=== PATIENT | male | born 1945 | race Caucasian/White ===

== ENCOUNTER → 2017-05-04 | Outpatient (CLI) | payer MEDICARE | END | disposition home or self-care (01) | LOC: LABWHC1 16:40 | PROVIDERS: ATTEND Internal Medicine Interventional Cardiology | DX: E03.9 Hypothyroidism, unspecified (principal); I25.10 Atherosclerotic heart disease of native coronary artery without angina pectoris | CPT/HCPCS: 36415; 84439; 84443 ==

== ENCOUNTER 2018-03-10 07:01 | Day surgery (SDC) | payer MEDICARE ==
[2018-03-05 10:18] VITALS: BMI 32.6
[~2018-03-10 07:01] MED LIST: LACTATED RINGERS 1,000 ML IV SCH; LIDOCAINE 1% 20 ML VIAL (10MG/ML) FOR IV START INTRADERMA PRN
[2018-03-10] MEDS ORDERED: LACTATED RINGERS 1,000 ML IV ONE (07:08)
[2018-03-10 07:14] VITALS: TEMP 98.5
[2018-03-10 07:22] LABS: Glucose,Whole Blood 146 mg/dL (75-99)
[2018-03-10] MEDS ORDERED: PROPOFOL 10 MG/ML 20 ML VIAL IV ONE (07:44)
--- NOTE | 2018-03-10 07:57 | P.GSHP ---
History of Present Illness H&P Date: 03/10/18 Chief Complaint: Screening colonoscopy This is a 72-year-old male who presents today for screening colonoscopy. He denies any significant GI complaints. Past Medical History Past Medical History: Diabetes Mellitus, GERD/Reflux, Hyperlipidemia, Hypertension History of Any Multi-Drug Resistant Organisms: None Reported Past Surgical History: Coronary Bypass/CABG, Heart Catheterization Additional Past Surgical History / Comment(s): Colonoscopy Past Anesthesia/Blood Transfusion Reactions: No Reported Reaction Smoking Status: Never smoker - Past Family History Father History Unknown: Yes Family Medical History: Myocardial Infarction ([place]) Mother History Unknown: Yes Family Medical History: Coronary Artery Disease (CAD) Medications and Allergies Home Medications Medication Instructions Recorded Confirmed Type Aspirin 325 mg PO DAILY 10/10/15 03/05/18 History Atorvastatin [Lipitor] 40 mg PO HS 10/10/15 03/10/18 History Insulin NPH/Reg Insulin 70/30 60 units SQ BID-W/MEALS 10/10/15 03/10/18 History [humuLIN 70/30 VIAL] Isosorbide Mononitrate ER [Imdur] 60 mg PO DAILY 10/10/15 03/10/18 History Lisinopril [Zestril] 10 mg PO DAILY 10/10/15 03/10/18 History Metoprolol Tartrate [Lopressor] 50 mg PO DAILY 10/10/15 03/10/18 History Omeprazole 40 tab PO DAILY 10/10/15 03/10/18 History glipiZIDE [Glucotrol] 10 mg PO DAILY 10/10/15 03/10/18 History Allergies Allergy/AdvReac Type Severity Reaction Status Date / Time No Known Allergies Allergy Verified 03/10/18 07:15 Surgical - Exam Vital Signs Temp Pulse 98.5 F 88 03/10/18 07:14 03/10/18 07:14 - General well developed, no distress - Eyes PERRL - ENT normal pinna - Neck no masses - Respiratory normal expansion - Cardiovascular Rhythm: regular - Abdomen Abdomen: soft, non tender Results - Labs Abnormal Lab Results - Last 24 Hours (Table) 03/10/18 Range/Units 07:18 POC Glucose (mg/dL) 146 H (75-99) mg/dL Assessment and Plan Assessment: We will perform screening colonoscopy.
--- NOTE | 2018-03-10 08:08 | P.OP ---
Date of Procedure: 03/10/18 Preoperative Diagnosis: Screening colonoscopy Postoperative Diagnosis: Normal colonoscopy Procedure(s) Performed: Colonoscopy Anesthesia: MAC Surgeon: Porter Choe Pathology: none sent Condition: stable Disposition: PACU Description of Procedure: PROCEDURE: The patient was placed on the endoscopy table in the lateral position. Digital rectal examination was performed which revealed no abnormalities. The prostate was symmetrical without nodules. Flexible colonoscope was then placed in the patient's anus and passed throughout the entire colon. The ileocecal valve was visualized. The cecum, ascending, transverse, descending and sigmoid colon were normal. The rectum was normal as well. There were no masses, polyps or diverticula noted in the entire colon. SUMMARY OF FINDINGS: Normal colonoscopy.
[2018-03-10 08:37] VITALS: BP 167/99; PULSE 80; RESP 20
== END 2018-03-10 09:00 | disposition home or self-care (01) ==
LOC: ORWHC2ENDO 07:01
PROVIDERS: ATTEND Surgery
DX: Z12.11 Encounter for screening for malignant neoplasm of colon (principal); E11.9 Type 2 diabetes mellitus without complications; E78.5 Hyperlipidemia, unspecified; I10 Essential (primary) hypertension; G47.33 Obstructive sleep apnea (adult) (pediatric); I25.10 Atherosclerotic heart disease of native coronary artery without angina pectoris; K21.9 Gastro-esophageal reflux disease without esophagitis; Z95.1 Presence of aortocoronary bypass graft; Z82.49 Family history of ischemic heart disease and other diseases of the circulatory system; Z79.82 Long term (current) use of aspirin; Z79.4 Long term (current) use of insulin; Z79.899 Other long term (current) drug therapy
CPT/HCPCS: J2704; G0121

== ENCOUNTER → 2019-03-19 | Outpatient (CLI) | payer MEDICARE ==
[2019-03-19 10:54] LABS: Anisocytosis Slight; HCT 46.8 % (39.0-53.0); HGB 14.8 gm/dL (13.0-17.5); MCH 25.2 pg (25.0-35.0); MCHC 31.6 g/dL (31.0-37.0); MCV 79.8 fL (80.0-100.0); Mean Platelet Volume 6.4; Microcytosis Slight; Platelet Count 247 k/uL (150-450); RBC 5.86 m/uL (4.30-5.90); WBC 8.4 k/uL (3.8-10.6)
== END | disposition home or self-care (01) ==
LOC: LABPAT 10:04
PROVIDERS: ATTEND Surgery
DX: Z01.812 Encounter for preprocedural laboratory examination (principal)
CPT/HCPCS: 36415; 85027

== ENCOUNTER → 2019-03-19 | Outpatient (CLI) | payer MEDICARE ==
--- NOTE | 2019-03-19 15:15 | MR ---
EXAMINATION TYPE: MR brain wo/w con DATE OF EXAM: 03/19/2019 COMPARISON: NONE HISTORY: Memory loss TECHNIQUE: Multiplanar, multisequence images of the brain and brainstem is performed without and with IV contras t, utilizing 9 mL intravenous Gadavist . FINDINGS: Diffusion weighted images demonstrate no evidence of a recent infarct or other diffusion ab normality. There is no worrisome extra-axial fluid collection. There is diffuse ventricular and sulc al prominence bilaterally with slightly more symmetric atrophy of the bilateral frontal lobes noted. Scattered foci of T2 hyperintensity seen throughout the deep and periventricular white matter, approx imately 20 scattered lesions are seen. Midline structures demonstrate normal morphology. The craniocervical junction appears within normal limits. Post contrast images demonstrate no abnormal enhancement. The dural venous sinuses appear pa tent. Mild mucosal thickening involving left frontal and anterior left ethmoid sinuses are present. T here is nasal septal deviation to the right. Right lens is thinned suggesting possible right cataract surgery. IMPRESSION: There is mild to moderate diffuse cerebral atrophy slightly more prominent over bilateral frontal lobes and mild to moderate chronic small vessel ischemic change. No suspicious enhancement.
== END | disposition home or self-care (01) ==
LOC: RADMRIMAIN 14:18
PROVIDERS: ATTEND Family Medicine
DX: G31.9 Degenerative disease of nervous system, unspecified (principal); I67.82 Cerebral ischemia; R41.3 Other amnesia
CPT/HCPCS: 70553; A9585

== ENCOUNTER → 2019-03-22 | Outpatient (CLI) | payer MEDICARE ==
--- NOTE | 2019-03-22 14:35 | NM ---
EXAMINATION TYPE: NM hepatobiliary w CCK DATE OF EXAM: 03/22/2019 COMPARISON: None HISTORY: Chronic cholecystitis and abdominal pain TECHNIQUE: After the intravenous administration of 5.1 mCi Tc 99m Mebrofenin hepatobiliary scintigrap hy is performed. Immediate images post injection. FINDINGS: There is satisfactory initial accumulation of tracer by the liver. The gallbladder is visualized wit hin 50 minutes. The small bowel activity is noted within 18 minutes. At one hour CCK was administer ed, patient was injected with 1.8 mcg of Kinevac, and gallbladder ejection fraction is calculated at 22 %, abnormally low. Therefore there is no scintigraphic evidence of cystic or common bile duct obs truction to suggest acute cholecystitis or gallbladder dyskinesia. IMPRESSION: 1. Borderline delayed visualization of the gallbladder raising suspicion for chronic cholecystitis. 2. Abnormally low gallbladder ejection fraction compatible with biliary dyskinesia.
== END | disposition home or self-care (01) ==
LOC: RADNMMAIN 12:24
PROVIDERS: ATTEND Surgery
DX: R93.2 Abnormal findings on diagnostic imaging of liver and biliary tract (principal)
CPT/HCPCS: 78227; A9537; J2805

== ENCOUNTER 2019-03-23 07:29 | Day surgery (SDC) | payer MEDICARE ==
[~2019-03-23 07:29] MED LIST changes: +DEXAMETHASONE SOD PHOSPHATE 10 MG/ML 1 ML VIAL IV ONE; +HEPARIN SODIUM,PORCINE 5,000 UNIT/ML 1 ML VIAL SQ ONE; +HYDROmorphone 0.5 MG/0.5 ML SYRINGE IVP PRN; -LACTATED RINGERS 1,000 ML IV SCH; +ONDANSETRON 4 MG/2 ML VIAL IVP ONE; +SCOPOLAMINE 1.5MG/72HR PATCH TRANSDERM ONE; +ceFAZolin IN SWFI 2 GM/20 ML SYRINGE IVP ONE
[2019-03-23] MEDS: LACTATED RINGERS 1,000 ML IV SCH ×2 (08:12→14:53)
[2019-03-23 08:15] LABS: Glucose,Whole Blood 143 mg/dL (75-99)
[2019-03-23] MEDS ORDERED: fentaNYL (PF) 50 MCG/ML 2 ML AMP ONE (08:34)
[2019-03-23] MEDS ORDERED: MIDAZOLAM 2 MG/2 ML VIAL ONE (08:34)
[2019-03-23] MEDS ORDERED: PROPOFOL 10 MG/ML 20 ML VIAL IV ONE (08:34)
[2019-03-23] MEDS ORDERED: SUCCINYLCHOLINE CHLORIDE 100 MG/5 ML SYR IV ONE (08:34)
[2019-03-23] MEDS ORDERED: GLYCOPYRROLATE 0.2 MG/ML 2 ML VIAL ONE (08:34)
[2019-03-23] MEDS ORDERED: HYDROmorphone (PF) 1 MG/ML ONE (08:34)
[2019-03-23] MEDS ORDERED: hydrALAZINE HCL 20 MG/ML 1 ML VIAL ONE (08:34)
[2019-03-23] MEDS ORDERED: LIDOCAINE 1% INJ 10MG/ML (20 ML MDV) ONE (08:34)
[2019-03-23] MEDS ORDERED: NEOSTIGMINE 1 MG/ML 10 ML VIAL ONE (08:34)
[2019-03-23] MEDS ORDERED: ROCURONIUM BROMIDE 10 MG/ML 10 ML VIAL IV ONE (08:34)
[2019-03-23] MEDS ORDERED: METOPROLOL TARTRATE 5 MG/5 ML VIAL IVP ONE (08:34)
[2019-03-23] MEDS ORDERED: LABETALOL 5 MG/ML VIAL MDV ONE (08:34)
[2019-03-23 08:38] LABS: Albumin 4.3 g/dL (3.5-5.0); Calcium 9.9 mg/dL (8.4-10.2); Potassium 4.7 mmol/L (3.5-5.1); Total Bilirubin 0.6 mg/dL (0.2-1.3)
[2019-03-23] MEDS ORDERED: BUPIVACAIN-EPI 0.25%-1:200,000 30 ML VIAL SQ ONE ×2 (09:03)
[2019-03-23] MEDS ORDERED: LACTATED RINGERS 1,000 ML IV ONE ×2 (09:39→12:25)
--- NOTE | 2019-03-23 10:27 | P.GSHP ---
History of Present Illness H&P Date: 03/23/19 Chief Complaint: Umbilical/incisional hernia This a 73-year-old male who's had a previous umbilical hernia repair. Patient developed a recurrent hernia. He presents today for laparoscopic robotic system repair. Past Medical History Past Medical History: COPD, Diabetes Mellitus, GERD/Reflux, Hyperlipidemia, Hypertension, Myocardial Infarction ([place]) Last Myocardial Infarction Date:: unknown History of Any Multi-Drug Resistant Organisms: None Reported Past Surgical History: Coronary Bypass/CABG, Heart Catheterization, Heart Catheterization With Stent, Hernia Repair Additional Past Surgical History / Comment(s): Colonoscopy Past Anesthesia/Blood Transfusion Reactions: No Reported Reaction Additional Past Anesthesia/Blood Transfusion Reaction / Comment(s): difficulty with intubation Date of Last Stent Placement:: 2012 Smoking Status: Never smoker - Past Family History Father History Unknown: Yes Family Medical History: Myocardial Infarction ([place]) Mother History Unknown: Yes Family Medical History: Coronary Artery Disease (CAD) Medications and Allergies Home Medications Medication Instructions Recorded Confirmed Type Atorvastatin [Lipitor] 40 mg PO HS 10/10/15 03/23/19 History Insulin NPH/Reg Insulin 70/30 65 units SQ AC-BRKFST 10/10/15 03/23/19 History [humuLIN 70/30 VIAL] Isosorbide Mononitrate ER [Imdur] 60 mg PO DAILY 10/10/15 03/23/19 History Lisinopril [Zestril] 10 mg PO DAILY 10/10/15 03/23/19 History Metoprolol Tartrate [Lopressor] 50 mg PO BID 10/10/15 03/23/19 History Omeprazole 40 tab PO HS 10/10/15 03/23/19 History glipiZIDE [Glucotrol] 10 mg PO BID 10/10/15 03/23/19 History Aspirin EC [Ecotrin Low Dose] 81 mg PO DAILY 03/18/19 03/23/19 History Loratadine [Claritin] 10 mg PO DAILY 03/18/19 03/23/19 History Insulin NPH Hum/Reg Insulin Hm 60 unit SQ PC-SUPPER 03/21/19 03/23/19 History [humuLIN 70/30 Kwikpen] Docusate [Colace] 100 mg PO BID #20 capsule 03/23/19 Rx HYDROcodone/APAP 7.5-325MG [[facility] 1 tab PO Q6HR PRN 3 Days #10 tab 03/23/19 Rx 7.5-325] Allergies Allergy/AdvReac Type Severity Reaction Status Date / Time No Known Allergies Allergy Verified 03/23/19 07:38 Surgical - Exam Vital Signs Temp Pulse Resp BP Pulse Ox 98.3 F 68 16 164/73 98 03/23/19 08:10 03/23/19 08:10 03/23/19 08:10 03/23/19 08:10 03/23/19 08:10 - General well developed - Eyes PERRL - ENT normal pinna - Neck no masses - Respiratory normal expansion - Cardiovascular Rhythm: regular - Abdomen Incision just below umbilicus. There is evidence of a recurrent hernia. Abdomen: soft, non tender Results - Labs 03/23/19 08:04 Abnormal Lab Results - Last 24 Hours (Table) 03/23/19 03/23/19 Range/Units 07:59 08:04 BUN 23 H (9-20) mg/dL Creatinine 1.50 H (0.66-1.25) mg/dL Glucose 146 H (74-99) mg/dL POC Glucose (mg/dL) 143 H (75-99) mg/dL Diabetes panel 03/23/19 Range/Units 08:04 Sodium 139 (137-145) mmol/L Potassium 4.7 (3.5-5.1) mmol/L Chloride 105 (98-107) mmol/L Carbon Dioxide 23 (22-30) mmol/L BUN 23 H (9-20) mg/dL Creatinine 1.50 H (0.66-1.25) mg/dL Glucose 146 H (74-99) mg/dL Calcium 9.9 (8.4-10.2) mg/dL AST 24 (17-59) U/L ALT 33 (21-72) U/L Alkaline Phosphatase 74 (38-126) U/L Total Protein 7.0 (6.3-8.2) g/dL Albumin 4.3 (3.5-5.0) g/dL Calcium panel 03/23/19 Range/Units 08:04 Calcium 9.9 (8.4-10.2) mg/dL Albumin 4.3 (3.5-5.0) g/dL Pituitary panel 03/23/19 Range/Units 08:04 Sodium 139 (137-145) mmol/L Potassium 4.7 (3.5-5.1) mmol/L Chloride 105 (98-107) mmol/L Carbon Dioxide 23 (22-30) mmol/L BUN 23 H (9-20) mg/dL Creatinine 1.50 H (0.66-1.25) mg/dL Glucose 146 H (74-99) mg/dL Calcium 9.9 (8.4-10.2) mg/dL Adrenal panel 03/23/19 Range/Units 08:04 Sodium 139 (137-145) mmol/L Potassium 4.7 (3.5-5.1) mmol/L Chloride 105 (98-107) mmol/L Carbon Dioxide 23 (22-30) mmol/L BUN 23 H (9-20) mg/dL Creatinine 1.50 H (0.66-1.25) mg/dL Glucose 146 H (74-99) mg/dL Calcium 9.9 (8.4-10.2) mg/dL Total Bilirubin 0.6 (0.2-1.3) mg/dL AST 24 (17-59) U/L ALT 33 (21-72) U/L Alkaline Phosphatase 74 (38-126) U/L Total Protein 7.0 (6.3-8.2) g/dL Albumin 4.3 (3.5-5.0) g/dL Assessment and Plan Assessment: Recurrent umbilical hernia. We'll perform laparoscopic robotic-assisted repair
--- NOTE | 2019-03-23 10:30 | P.OP ---
Date of Procedure: 03/23/19 Preoperative Diagnosis: Umbilical hernia Postoperative Diagnosis: Incisional hernia Procedure(s) Performed: Laparoscopic robotic-assisted repair of Incisional hernia Partial omentectomy Anesthesia: HUBER Surgeon: Porter Choe Estimated Blood Loss (ml): 5 Pathology: other (Incarcerated fat) Condition: stable Disposition: PACU Description of Procedure: The patient was placed on the operating table in the supine position. He received general anesthesia. His abdomen was prepped and draped usual fashion. Using a 5 mm optical trocar under direct visualization the peritoneal cavity was entered in the left upper quadrant. The abdomen was then insufflated. The laparoscope was placed back into the perineal cavity. Next a 8 mm robotic trocar was placed in the left lower quadrant and a 12 mm robotic trocar was placed in the left lateral position. The original 5 mm trocar was exchanged for a 8 mm robotic trocar. The patient's placed in the left side up position. And the patient was docked to the robot. The incisional hernia was visualized. It was located just below the umbilicus. Using hook cautery the peritoneum over the incisional hernia was excised. The incarcerated fat/omentum was excised sent to pathology. The fascial opening was repaired using 0V LOC suture. Next a piece of 11 cm round ventral light ST mesh was placed into the. Cavity and secured with 2 OV lock suture. The patient was undocked the robot. The needles were retrieved. The fascia of the 12 mm trocar site was closed with 0 Ethibond suture. Skin was closed interrupted 3-0 Monocryl suture. Dermabond dressings was applied. Patient tolerated procedure well and was sent to recovery room stable condition.
[2019-03-23 11:07] LABS: Glucose,Whole Blood 318 mg/dL (75-99)
[2019-03-23] MEDS ORDERED: INSULIN ASPART (NovoLOG) 100 UNIT/ML VIAL SQ ONE (11:10)
--- NOTE | 2019-03-23 11:24 | XR ---
EXAMINATION TYPE: XR chest 1V DATE OF EXAM: 03/23/2019 COMPARISON: 10/10/2015 HISTORY: Shortness of breath and congestive heart failure TECHNIQUE: Single frontal view of the chest is obtained. FINDINGS: Moderate pulmonary vascular congestion is new. Cardia mediastinal silhouette is enlarged w ith post CABG change. Apices are obscured by the patient's chin. Increasing confluent opacity at the left lung base could represent developing pneumonia or confluent pulmonary edema. HIDA hernia suspect ed. IMPRESSION: New moderate pulmonary vascular congestion and increasing consolidation at the left lung base that could represent confluent pulmonary edema, atelectasis or less likely pneumonia.
[2019-03-23 12:20] LABS: Glucose,Whole Blood 337 mg/dL (75-99)
[2019-03-23] MEDS ORDERED: HYDROmorphone 0.5 MG/0.5 ML SYRINGE IVP PRN (12:25)
[2019-03-23] MEDS ORDERED: NALOXONE 0.4 MG/ML 1 ML VIAL IV PRN (12:25)
[2019-03-23] MEDS ORDERED: ACETAMINOPHEN TAB 325 MG TAB PO PRN (12:25)
[2019-03-23 14:50] VITALS: BMI 31.8
--- NOTE | 2019-03-23 16:02 | P.CNPUL ---
History of Present Illness Consult date: 03/23/19 Requesting physician: Porter Choe Reason for consult: dyspnea Chief complaint: Shortness of breath History of present illness: This is 73-year-old male with past medical history of diabetes mellitus, GERD/reflux, hypertension, hyperlipidemia, previous myocardial infarction, CAD with history of 5 vessel bypass grafting and stenting, morbid obesity, and previous history of umbilical hernia repair. Patient developed recurrent hernia, and today on 03/23/2019 he had laparoscopic robotic system repair. In the postoperative period patient developed shortness of breath, became quite tachypneic, shallow respirations. Chest x-ray was obtained showing new moderate pulmonary vascular congestion and increasing consolidation at the left lung base that could represent confluent pulmonary edema or atelectasis. Patient was placed on BiPAP support with pressures of 10 and 5, and FiO2 of 24%. He improved with noninvasive positive pressure ventilation, currently off the BiPAP support, and 3 L of oxygen. He is awake and alert, in no acute distress. Lung sounds reveal basilar crackles at posterior bases, no significant wheezing or rhonchi. Afebrile. Today's labs showed sodium of 139, potassium is 4.7, chloride is 105, CO2 is 23, BUN was 23, creatinine is 1.50., LFTs were within normal limits. Patient is having mild incisional discomfort. He denies any cough or congestion, denies any chest pain. Vital signs are stable, we are consulted in regards to dyspnea related to what appears to be negative pressure pulmonary edema. Review of Systems All systems: negative Constitutional: Denies chills, Denies fever Eyes: denies blurred vision, denies pain Ears, nose, mouth and throat: Denies headache, Denies sore throat Cardiovascular: Denies chest pain, Denies shortness of breath Respiratory: Reports dyspnea, Denies cough Gastrointestinal: Denies abdominal pain, Denies diarrhea, Denies nausea, Denies vomiting Musculoskeletal: Denies myalgias Integumentary: Denies pruritus, Denies rash Neurological: Denies numbness, Denies weakness Psychiatric: Denies anxiety, Denies depression Endocrine: Denies fatigue, Denies weight change Past Medical History Past Medical History: COPD, Diabetes Mellitus, GERD/Reflux, Hyperlipidemia, Hypertension, Myocardial Infarction ([place]) Last Myocardial Infarction Date:: unknown History of Any Multi-Drug Resistant Organisms: None Reported Past Surgical History: Coronary Bypass/CABG, Heart Catheterization, Heart Cath eterization With Stent, Hernia Repair Additional Past Surgical History / Comment(s): Colonoscopy Past Anesthesia/Blood Transfusion Reactions: No Reported Reaction Additional Past Anesthesia/Blood Transfusion Reaction / Comment(s): difficulty with intubation Date of Last Stent Placement:: 2012 Past Psychological History: No Psychological Hx Reported Smoking Status: Never smoker Past Alcohol Use History: None Reported Past Drug Use History: None Reported - Past Family History Father History Unknown: Yes Family Medical History: Myocardial Infarction ([place]) Mother History Unknown: Yes Family Medical History: Coronary Artery Disease (CAD) Medications and Allergies Home Medications Medication Instructions Recorded Confirmed Type Atorvastatin [Lipitor] 40 mg PO HS 10/10/15 03/23/19 History Insulin NPH/Reg Insulin 70/30 65 units SQ AC-BRKFST 10/10/15 03/23/19 History [humuLIN 70/30 VIAL] Isosorbide Mononitrate ER [Imdur] 60 mg PO DAILY 10/10/15 03/23/19 History Lisinopril [Zestril] 10 mg PO DAILY 10/10/15 03/23/19 History Metoprolol Tartrate [Lopressor] 50 mg PO BID 10/10/15 03/23/19 History Omeprazole 40 tab PO HS 10/10/15 03/23/19 History glipiZIDE [Glucotrol] 10 mg PO BID 10/10/15 03/23/19 History Aspirin EC [Ecotrin Low Dose] 81 mg PO DAILY 03/18/19 03/23/19 History Loratadine [Claritin] 10 mg PO DAILY 03/18/19 03/23/19 History Insulin NPH Hum/Reg Insulin Hm 60 unit SQ PC-SUPPER 03/21/19 03/23/19 History [humuLIN 70/30 Kwikpen] Docusate [Colace] 100 mg PO BID #20 capsule 03/23/19 Rx HYDROcodone/APAP 7.5-325MG [[facility] 1 tab PO Q6HR PRN 3 Days #10 tab 03/23/19 Rx 7.5-325] Allergies Allergy/AdvReac Type Severity Reaction Status Date / Time No Known Allergies Allergy Verified 03/23/19 07:38 Physical Exam Vitals: Vital Signs Temp Pulse Resp BP Pulse Ox 03/23/19 12:45 79 24 133/62 97 03/23/19 12:31 80 21 131/59 97 03/23/19 12:15 75 25 H 136/63 03/23/19 12:00 81 27 H 128/56 03/23/19 11:46 81 33 H 127/57 96 03/23/19 11:31 82 30 H 125/54 97 03/23/19 11:16 77 23 119/63 97 03/23/19 11:00 79 24 112/76 96 03/23/19 10:46 68 24 112/60 96 03/23/19 10:31 71 24 107/57 98 03/23/19 10:16 97 F L 90 22 119/67 95 03/23/19 08:10 98.3 F 68 16 164/73 98 Intake and Output 03/23/19 03/23/19 03/23/19 06:59 14:59 22:59 Intake Total 1400 Output Total 5 Balance 1395 Intake: IV 1400 Oral 0 Output: Estimated Blood Loss 5 GENERAL EXAM: Alert, pleasant, 73-year-old obese white male, on 3 L of oxygen, currently off BiPAP support comfortable in no apparent distress. HEAD: Normocephalic/atraumatic. EYES: Normal reaction of pupils, equal size. Conjunctiva pink, sclera white. NOSE: Clear with pink turbinates. THROAT: No erythema or exudates. NECK: No masses, no JVD, no thyroid enlargement, no adenopathy. CHEST: No chest wall deformity. Symmetrical expansion. LUNGS: Equal air entry with bilateral crackles at posterior bases CVS: Regular rate and rhythm, normal S1 and S2, no gallops, no murmurs, no rubs ABDOMEN: Soft, nontender. No hepatosplenomegaly, normal bowel sounds, no guarding or rigidity. Incisions are clean dry and intact EXTREMITIES: No clubbing, no edema, no cyanosis, 2+ pulses and upper and lower extremities. MUSCULOSKELETAL: Muscle strength and tone normal. SPINE: No scoliosis or deformity SKIN: No rashes CENTRAL NERVOUS SYSTEM: Alert and oriented -3. No focal deficits, tone is normal in all 4 extremities. PSYCHIATRIC: Alert and oriented -3. Appropriate affect. Intact judgment and insight. Results - Laboratory Findings CBC and BMP: 03/23/19 08:04 Abnormal lab findings: Abnormal Labs 03/23/19 03/23/19 03/23/19 07:59 08:04 11:04 BUN 23 H Creatinine 1.50 H Glucose 146 H POC Glucose (mg/dL) 143 H 318 H 03/23/19 12:00 BUN Creatinine Glucose POC Glucose (mg/dL) 337 H - Diagnostic Findings Chest x-ray: report reviewed, image reviewed Assessment and Plan Plan: #1. Dyspnea related to negative pressure pulmonary edema improved with BiPAP support #2. Incisional hernia, after previous umbilical hernia repair, status post laparoscopic robotic system repair, Post op day 0 #3. Diabetes mellitus #4. CAD status post 5 vessel coronary artery bypass, and previous stenting #5. Hypertension #6. Hyperlipidemia #7. Previous history of myocardial infarction #8. Lifetime nonsmoker #9. Chronic kidney disease stage III #10. GERD/reflux Plan: Patient required a brief period on BiPAP support, and is already feeling better, is currently on 3 L per nasal cannula, maintaining stable oxygenation, no complaints of shortness of breath, no chest pain. Monitor vital signs and oxygenation. We'll obtain follow-up labs, CBC, BMP, proBNP and troponin in the morning. Follow-up chest x-ray in the morning, encourage deep breathing and coughing, GI and DVT prophylaxis, pain control. We'll continue to follow. I performed a history & physical examination of the patient and discussed their management with my nurse practitioner, Nedra Colón. I reviewed the nurse practitioner's note and agree with the documented findings and plan of care. Lung sounds are positive for bibasilar crackles. The findings and the impression was discussed with the patient. I attest to the documentation by the nurse practitioner. Time with Patient: Greater than 30
[2019-03-23] MEDS: HYDROcodone/APAP 5-325MG 1 EACH TAB PO PRN ×2 (16:31→22:54)
[2019-03-23 20:50] LABS: Glucose,Whole Blood 266 mg/dL (75-99)
[2019-03-23] MEDS: METOPROLOL TARTRATE 50 MG TAB PO SCH (20:55)
[2019-03-23] MEDS: INSULIN ASPART (NovoLOG) 100 UNIT/ML VIAL SQ SCH (20:55)
[2019-03-23] MEDS: glipiZIDE 10 MG TAB PO SCH (20:55)
[2019-03-23] MEDS: DOCUSATE 100 MG CAP PO SCH (20:55)
[2019-03-23] MEDS ORDERED: ATORVASTATIN 40 MG TAB PO SCH (21:00)
[2019-03-23] MEDS ORDERED: PANTOPRAZOLE 40 MG TABLET PO SCH (21:00)
[2019-03-24 06:04] LABS: Glucose,Whole Blood 135 mg/dL (75-99)
[2019-03-24 06:23] LABS: Anisocytosis Slight; HCT 41.9 % (39.0-53.0); Hypochromasia Slight; MCH 24.7 pg (25.0-35.0); MCHC 31.1 g/dL (31.0-37.0); MCV 79.4 fL (80.0-100.0); Mean Platelet Volume 6.9; Microcytosis Slight; Platelet Count 274 k/uL (150-450); RBC 5.28 m/uL (4.30-5.90); RDW 17.6 % (11.5-15.5); WBC 11.7 k/uL (3.8-10.6)
[2019-03-24] MEDS: glipiZIDE 10 MG TAB PO SCH (06:27)
[2019-03-24] MEDS: HYDROcodone/APAP 5-325MG 1 EACH TAB PO PRN (06:28)
[2019-03-24] MEDS: INSULIN ASPART (NovoLOG) 100 UNIT/ML VIAL SQ SCH ×2 (06:28→12:29)
[2019-03-24 06:34] LABS: Calcium 9.1 mg/dL (8.4-10.2); Potassium 4.7 mmol/L (3.5-5.1)
[2019-03-24] MEDS ORDERED: LISINOPRIL 10 MG TAB PO SCH (09:00)
[2019-03-24] MEDS ORDERED: ENOXAPARIN 40 MG/0.4 ML SYRINGE SQ SCH (09:00)
[2019-03-24] MEDS ORDERED: ISOSORBIDE MONONITRATE ER 60 MG TAB.ER.24H PO SCH (09:00)
[2019-03-24] MEDS ORDERED: ASPIRIN 81 MG PO SCH (09:00)
[2019-03-24] MEDS ORDERED: LORATADINE 10 MG TAB PO SCH (09:00)
[2019-03-24] MEDS: DOCUSATE 100 MG CAP PO SCH (09:18)
[2019-03-24] MEDS: METOPROLOL TARTRATE 50 MG TAB PO SCH (09:18)
[2019-03-24 09:22] VITALS: RESP 18
[2019-03-24 12:19] LABS: Glucose,Whole Blood 155 mg/dL (75-99)
--- NOTE | 2019-03-24 12:37 | XR ---
EXAMINATION TYPE: XR chest 2V DATE OF EXAM: 03/24/2019 COMPARISON: 03/23/2019 INDICATION: Short of breath TECHNIQUE: Frontal and lateral views of the chest are obtained. FINDINGS: The heart size is normal. The pulmonary vasculature is normal. Some platelike atelectasis near the cardiac apex. Sternotomy wires from prior CABG.. IMPRESSION: 1. Plate atelectasis left midlung
[2019-03-24 12:39] VITALS: BP 138/78; PULSE 67; TEMP 97.7
--- NOTE | 2019-03-24 12:41 | P.PN ---
Subjective Progress Note Date: 03/24/19 CHIEF COMPLAINT: Hernia HISTORY OF PRESENT ILLNESS: Patient is status post laparoscopic robotic-assisted repair of incisional hernia. Patient developed respiratory distress postoperatively and required BiPAP for a short period of time. The patient is currently on room air. He denies shortness of breath. His pain is tolerable. He is tolerating oral intake. Patient is hoping to be discharged home today. PHYSICAL EXAM: VITAL SIGNS: Reviewed. GENERAL: Well-developed in no acute distress. HEENT: No sclera icterus. Extraocular movements grossly intact. Moist buccal mucosa. Head is atraumatic, normocephalic. ABDOMEN: Soft. Nondistended. Nontender. Incision sites clean dry and intact without drainage NEUROLOGIC: Alert and oriented. Cranial nerves II through XII grossly intact. ASSESSMENT: 1. Status post laparoscopic robotic-assisted repair of incisional hernia 2. Dyspnea related to negative pressure pulmonary edema, resolved PLAN: Patient is stable for discharge home when cleared by pulmonary medicine and internal medicine groups Nurse practitioner note has been reviewed by physician. Signing provider agrees with the documented findings, assessment, and plan of care. Objective - Vital Signs Vital signs: Vital Signs Temp 97.7 F 03/24/19 12:00 Pulse 67 03/24/19 12:00 Resp 18 03/24/19 12:00 BP 138/78 03/24/19 12:00 Pulse Ox 94 L 03/24/19 12:00 Intake & Output 03/23/19 03/24/19 03/24/19 18:59 06:59 18:59 Intake Total 1400 120 Output Total 5 600 500 Balance 1395 -600 -380 Weight 90.4 kg Intake: IV 1400 Oral 0 120 Output: Urine 600 500 Estimated Blood Loss 5 Other: Voiding Method Toilet Toilet # Voids 1 - Labs CBC & Chem 7: 03/24/19 06:01 03/24/19 06:01 Labs: Abnormal Lab Results - Last 24 Hours (Table) 03/23/19 03/24/19 03/24/19 Range/Units 20:48 06:01 06:01 WBC 11.7 H (3.8-10.6) k/uL MCV 79.4 L (80.0-100.0) fL MCH 24.7 L (25.0-35.0) pg RDW 17.6 H (11.5-15.5) % Carbon Dioxide 21 L (22-30) mmol/L BUN 27 H (9-20) mg/dL Creatinine 1.61 H (0.66-1.25) mg/dL Glucose 132 H (74-99) mg/dL POC Glucose (mg/dL) 266 H (75-99) mg/dL Troponin I (0.000-0.034) ng/mL 03/24/19 03/24/19 03/24/19 Range/Units 06:01 06:03 12:17 WBC (3.8-10.6) k/uL MCV (80.0-100.0) fL MCH (25.0-35.0) pg RDW (11.5-15.5) % Carbon Dioxide (22-30) mmol/L BUN (9-20) mg/dL Creatinine (0.66-1.25) mg/dL Glucose (74-99) mg/dL POC Glucose (mg/dL) 135 H 155 H (75-99) mg/dL Troponin I 0.060 H* (0.000-0.034) ng/mL
--- NOTE | 2019-03-24 12:56 | P.PN ---
Subjective Progress Note Date: 03/24/19 Principal diagnosis: Negative pressure pulmonary edema This is 73-year-old male with past medical history of diabetes mellitus, GERD/reflux, hypertension, hyperlipidemia, previous myocardial infarction, CAD with history of 5 vessel bypass grafting and stenting, morbid obesity, and previous history of umbilical hernia repair. Patient developed recurrent hernia, and today on 03/23/2019 he had laparoscopic robotic system repair. In the postoperative period patient developed shortness of breath, became quite tachypneic, shallow respirations. Chest x-ray was obtained showing new moderate pulmonary vascular congestion and increasing consolidation at the left lung base that could represent confluent pulmonary edema or atelectasis. Patient was placed on BiPAP support with pressures of 10 and 5, and FiO2 of 24%. He improved with noninvasive positive pressure ventilation, currently off the BiPAP support, and 3 L of oxygen. He is awake and alert, in no acute distress. Lung sounds reveal basilar crackles at posterior bases, no significant wheezing or rhonchi. Afebrile. Today's labs showed sodium of 139, potassium is 4.7, chloride is 105, CO2 is 23, BUN was 23, creatinine is 1.50., LFTs were within normal limits. Patient is having mild incisional discomfort. He denies any cough or congestion, denies any chest pain. Vital signs are stable, we are consulted in regards to dyspnea related to what appears to be negative pressure pulmonary edema. The patient is seen today 03/24/2019 in follow-up on the selective care unit. He is currently sitting up in a chair at the bedside. Awake and alert in no acute distress. Breathing quite a bit easier today as compared to yesterday. He did utilize his home CPAP last evening. Currently maintaining O2 saturations in the 90s on room air. He's afebrile. Hemodynamically stable. White count 11.7. Hemoglobin 13.0. Creatinine 1.61. ProBNP 1390. Today's chest x-ray reveals some plate like atelectasis left lung. Objective - Vital Signs Vital signs: Vital Signs Temp 98.7 F 03/24/19 08:00 Pulse 80 03/24/19 08:00 Resp 18 03/24/19 08:00 BP 167/69 03/24/19 08:00 Pulse Ox 93 L 03/24/19 08:00 Intake & Output 03/23/19 03/24/1903/24/19 18:59 06:59 18:59 Intake Total 1400 120 Output Total 5 600 500 Balance 1395 -600 -380 Weight 90.4 kg Intake: IV 1400 Oral 0 120 Output: Urine 600 500 Estimated Blood Loss 5 Other: Voiding Method Toilet Toilet # Voids 1 - Exam GENERAL EXAM: Alert, pleasant, 73-year-old obese white male, on room air. CPAP at night. HEAD: Normocephalic/atraumatic. EYES: Normal reaction of pupils, equal size. Conjunctiva pink, sclera white. NOSE: Clear with pink turbinates. THROAT: No erythema or exudates. NECK: No masses, no JVD, no thyroid enlargement, no adenopathy. CHEST: No chest wall deformity. Symmetrical expansion. LUNGS: Equal air entry with crackles in the left posterior base. CVS: Regular rate and rhythm, normal S1 and S2, no gallops, no murmurs, no rubs ABDOMEN: Soft, nontender. No hepatosplenomegaly, normal bowel sounds, no guarding or rigidity. Incisions are clean dry and intact EXTREMITIES: No clubbing, no edema, no cyanosis, 2+ pulses and upper and lower extremities. MUSCULOSKELETAL: Muscle strength and tone normal. SPINE: No scoliosis or deformity SKIN: No rashes CENTRAL NERVOUS SYSTEM: No focal deficits, tone is normal in all 4 extremities. PSYCHIATRIC: Alert and oriented -3. Appropriate affect. Intact judgment and insight. - Labs CBC & Chem 7: 03/24/19 06:01 03/24/19 06:01 Labs: Abnormal Lab Results - Last 24 Hours (Table) 03/23/19 03/24/19 03/24/19 Range/Units 20:48 06:01 06:01 WBC 11.7 H (3.8-10.6) k/uL MCV 79.4 L (80.0-100.0) fL MCH 24.7 L (25.0-35.0) pg RDW 17.6 H (11.5-15.5) % Carbon Dioxide 21 L (22-30) mmol/L BUN 27 H (9-20) mg/dL Creatinine 1.61 H (0.66-1.25) mg/dL Glucose 132 H (74-99) mg/dL POC Glucose (mg/dL) 266 H (75-99) mg/dL Troponin I (0.000-0.034) ng/mL 03/24/19 03/24/19 03/24/19 Range/Units 06:01 06:03 12:17 WBC (3.8-10.6) k/uL MCV (80.0-100.0) fL MCH (25.0-35.0) pg RDW (11.5-15.5) % Carbon Dioxide (22-30) mmol/L BUN (9-20) mg/dL Creatinine (0.66-1.25) mg/dL Glucose (74-99) mg/dL POC Glucose (mg/dL) 135 H 155 H (75-99) mg/dL Troponin I 0.060 H* (0.000-0.034) ng/mL Assessment and Plan Assessment: Impression: #1. Dyspnea related to negative pressure pulmonary edema improved with BiPAP support #2. Incisional hernia, after previous umbilical hernia repair, status post laparoscopic robotic system repair, Post op day 0 #3. Diabetes mellitus #4. CAD status post 5 vessel coronary artery bypass, and previous stenting #5. Hypertension #6. Hyperlipidemia #7. Previous history of myocardial infarction #8. Lifetime nonsmoker #9. Chronic kidney disease stage III #10. GERD/reflux Plan: The patient was seen and evaluated by Dr. Lacy. Chest x-ray and labs reviewed. He is stable on room air now. Significantly improved from flash pulmonary edema. He is cleared for discharge from the pulmonary standpoint. Continue his home CPAP. I, the cosigning physician, performed a history & physical examination of the p atient. Lungs sounds with crackles in left posterior base. Maintaining good O2 saturations in the 90s on room air. I discussed the assessment and plan of care with my nurse practitioner, Tamie Cui. I attest to the above note as dictated by her.
--- NOTE | 2019-03-24 13:05 | P.CONS ---
History of Present Illness - Reason for Consult Consult date: 03/24/19 Requesting physician: Porter Choe - History of Present Illness This is a 73-year-old male patient who presented to the hospital for laparoscopic robotic repair of umbilical hernia with Dr. Choe. Patient has a past medical history of diabetes mellitus, GERD, hypertension, hyperlipidemia, coronary artery disease with 5 vessel CABG in 2012, morbid obesity and previous history of umbilical hernia repair. Postoperatively increased shortness of breath. Pulmonate services were consulted and patient did require BiPAP support for short time. Today patient is currently sitting in chair. Patient remains hoarse but denies any chest pain or shortness of breath. Patient denies nausea vomiting or diarrhea. Patient denies any urinary burning or frequency. Patient's creatinine elevated at 1.61 and bun 26. Per patient and patient is aware that he is elevated kidney labs and does follow with his PCP. Review of Systems Please refer to HPI otherwise unremarkable Past Medical History Past Medical History: COPD, Diabetes Mellitus, GERD/Reflux, Hyperlipidemia, Hypertension, Myocardial Infarction ([place]) Last Myocardial Infarction Date:: unknown History of Any Multi-Drug Resistant Organisms: None Reported Past Surgical History: Coronary Bypass/CABG, Heart Catheterization, Heart Catheterization With Stent, Hernia Repair Additional Past Surgical History / Comment(s): Colonoscopy Past Anesthesia/Blood Transfusion Reactions: No Reported Reaction Additional Past Anesthesia/Blood Transfusion Reaction / Comm: difficulty with intubation Date of Last Stent Placement:: 2012 Past Psychological History: No Psychological Hx Reported Smoking Status: Never smoker Past Alcohol Use History: None Reported Past Drug Use History: None Reported - Past Family History Father History Unknown: Yes Family Medical History: Myocardial Infarction ([place]) Mother History Unknown: Yes Family Medical History: Coronary Artery Disease (CAD) Medications and Allergies Home Medications Medication Instructions Recorded Confirmed Type Atorvastatin [Lipitor] 40 mg PO HS 10/10/15 03/23/19 History Insulin NPH/Reg Insulin 70/30 65 units SQ AC-BRKFST 10/10/15 03/23/19 History [humuLIN 70/30 VIAL] Isosorbide Mononitrate ER [Imdur] 60 mg PO DAILY 10/10/15 03/23/19 History Lisinopril [Zestril] 10 mg PO DAILY 10/10/15 03/23/19 History Metoprolol Tartrate [Lopressor] 50 mg PO BID 10/10/15 03/23/19 History Omeprazole 40 tab PO HS 10/10/15 03/23/19 History glipiZIDE [Glucotrol] 10 mg PO BID 10/10/15 03/23/19 History Aspirin EC [Ecotrin Low Dose] 81 mg PO DAILY 03/18/19 03/23/19 History Loratadine [Claritin] 10 mg PO DAILY 03/18/19 03/23/19 History Insulin NPH Hum/Reg Insulin Hm 60 unit SQ PC-SUPPER 03/21/19 03/23/19 History [humuLIN 70/30 Kwikpen] Docusate [Colace] 100 mg PO BID #20 capsule 03/23/19 Rx HYDROcodone/APAP 7.5-325MG [[place] 1 tab PO Q6HR PRN 3 Days #10 tab 03/23/19 Rx 7.5-325] Allergies Allergy/AdvReac Type Severity Reaction Status Date / Time No Known Allergies Allergy Verified 03/23/19 07:38 Physical Exam Vitals: Vital Signs Temp Pulse Resp BP Pulse Ox 03/24/19 12:00 97.7 F 67 18 138/78 94 L 03/24/19 08:00 98.7 F 80 18 167/69 93 L 03/24/19 07:35 97 19 03/24/19 03:00 99.0 F 97 19 157/82 95 03/24/19 00:00 110 H 20 147/79 94 L 03/23/19 20:00 99.3 F 109 H 20 154/78 94 L 03/23/19 16:35 94 L 03/23/19 16:00 97.6 F 91 18 129/73 94 L Intake and Output 03/23/19 03/24/19 03/24/19 22:59 06:59 14:59 Intake Total 120 Output Total 100 500 500 Balance -100 -500 -380 Intake: Oral 120 Output: Urine 100 500 500 Other: Voiding Method Toilet Toilet Toilet # Voids 1 Weight 90.4 kg Head normocephalic Neck supple Lungs clear to auscultation bilaterally no wheezing or crackles Heart regular rate and rhythm S1-S2, no rub or gallop Abdomen is soft obese nontender nondistended positive bowel sounds no hepatosplenomegaly Extremities no edema Neuro alert and orientated to 3, hoarse voice Results CBC & Chem 7: 06/06/19 06:01 03/24/19 06:01 Labs: Abnormal Lab Results - Last 24 Hours (Table) 03/23/19 03/24/19 03/24/19 Range/Units 20:48 06:01 06:01 WBC 11.7 H (3.8-10.6) k/uL MCV 79.4 L (80.0-100.0) fL MCH 24.7 L (25.0-35.0) pg RDW 17.6 H (11.5-15.5) % Carbon Dioxide 21 L (22-30) mmol/L BUN 27 H (9-20) mg/dL Creatinine 1.61 H (0.66-1.25) mg/dL Glucose 132 H (74-99) mg/dL POC Glucose (mg/dL) 266 H (75-99) mg/dL Troponin I (0.000-0.034) ng/mL 03/24/19 03/24/19 03/24/19 Range/Units 06:01 06:03 12:17 WBC (3.8-10.6) k/uL MCV (80.0-100.0) fL MCH (25.0-35.0) pg RDW (11.5-15.5) % Carbon Dioxide (22-30) mmol/L BUN (9-20) mg/dL Creatinine (0.66-1.25) mg/dL Glucose (74-99) mg/dL POC Glucose (mg/dL) 135 H 155 H (75-99) mg/dL Troponin I 0.060 H* (0.000-0.034) ng/mL Assessment and Plan Assessment: 1. Status post laparoscopic robotic repair of umbilical hernia with Dr. Choe. Patient is currently postop day 1 2. Postoperative dyspnea related to negative pressure pulmonary edema. Patient was evaluated pulmonary services. Patient did require BiPAP support for short time. Repeat chest x-ray reviewed. Discussed case with pulmonary services patient is stable from pulmonary standpoint 3. Diabetes mellitus. 4. Coronary artery disease status post 5 vessel coronary artery bypass graft surgery 5. Essential hypertension 8. Hyperlipidemia 9. Chronic kidney disease stage III. Patient's creatinine is elevated 1.61. Per patient with patient has known elevated creatinine no recent labs in system. Patient reports he does follow with his PCP for this issue 10. History of GERD 11. Leukocytosis likely secondary from steroids thank you for this consultation we'll continue to follow patient closely t hroughout stay
--- NOTE | 2019-03-24 14:06 | P.DS ---
Providers Expected date of discharge: 03/24/19 Attending physician: Porter Choe Consults: 03/23/19 12:05 Consult Physician Routine Consulting Provider: Boaz Jordan Consult Reason/Comments: med manage Do you want consulting provider notified?: Yes Primary care physician: Janet Stover Hospital Course: 73 year old male who is status post laparoscopic robotic-assisted repair of inci sional hernia. Patient developed respiratory distress postoperatively and required BiPAP for a short period of time. The patient is currently on room air. He denies shortness of breath. His pain is tolerable. He is tolerating oral intake. He has been evaluated by pulmonary and internal medicine services and cleared for discharge by both services. Patient discharged home today in stable condition. Please see EMR further hospital course details. Discharge diagnosis: 1. Status post laparoscopic robotic-assisted repair of incisional hernia 2. Dyspnea related to negative pressure pulmonary edema, resolved Nurse practitioner note has been reviewed by physician. Signing provider agrees with the documented findings, assessment, and plan of care. Patient Condition at Discharge: Stable Plan - Discharge Summary Discharge Rx Participant: No New Discharge Prescriptions: New Docusate [Colace] 100 mg PO BID #20 capsule HYDROcodone/APAP 7.5-325MG [[place] 7.5-325] 1 tab PO Q6HR PRN 3 Days #10 tab PRN Reason: Pain Continue glipiZIDE [Glucotrol] 10 mg PO BID Omeprazole 40 tab PO HS Metoprolol Tartrate [Lopressor] 50 mg PO BID Isosorbide Mononitrate ER [Imdur] 60 mg PO DAILY Insulin NPH/Reg Insulin 70/30 [humuLIN 70/30 VIAL] 65 units SQ AC-BRKFST Atorvastatin [Lipitor] 40 mg PO HS Loratadine [Claritin] 10 mg PO DAILY Aspirin EC [Ecotrin Low Dose] 81 mg PO DAILY Insulin NPH Hum/Reg Insulin Hm [humuLIN 70/30 Kwikpen] 60 unit SQ PC-SUPPER Discontinued Lisinopril [Zestril] 10 mg PO DAILY Discharge Medication List Atorvastatin [Lipitor] 40 mg PO HS 10/10/15 [History] Insulin NPH/Reg Insulin 70/30 [humuLIN 70/30 VIAL] 65 units SQ AC-BRKFST 10/10/15 [History] Isosorbide Mononitrate ER [Imdur] 60 mg PO DAILY 10/10/15 [History] Metoprolol Tartrate [Lopressor] 50 mg PO BID 10/10/15 [History] Omeprazole 40 tab PO HS 10/10/15 [History] glipiZIDE [Glucotrol] 10 mg PO BID 10/10/15 [History] Aspirin EC [Ecotrin Low Dose] 81 mg PO DAILY 03/18/19 [History] Loratadine [Claritin] 10 mg PO DAILY 03/18/19 [History] Insulin NPH Hum/Reg Insulin Hm [humuLIN 70/30 Kwikpen] 60 unit SQ PC-SUPPER 03/21/19 [History] Docusate [Colace] 100 mg PO BID #20 capsule 03/23/19 [Rx] HYDROcodone/APAP 7.5-325MG [[place] 7.5-325] 1 tab PO Q6HR PRN 3 Days #10 tab 03/23/19 [Rx] Follow up Appointment(s)/Referral(s): Cliff Lacy DO [Doctor of Osteopathic Medicine] - 1 Week Janet Stover DO [Primary Care Provider] - 1 Week Porter Choe MD [STAFF PHYSICIAN] - 03/31/19 1:30 pm () Ambulatory/Diagnostic Orders: Comprehensive Metabolic Panel [LAB.AMB] Time Frame: 3 Days, Location: None Selected Discharge Disposition: HOME SELF-CARE
== END 2019-03-24 15:43 | disposition home or self-care (01) ==
LOC: OR 07:29 → 3SCARD 12:42 → OR 03-24 15:43
PROVIDERS: ATTEND Surgery
DX: K43.2 Incisional hernia without obstruction or gangrene (principal); E11.22 Type 2 diabetes mellitus with diabetic chronic kidney disease; E66.01 Morbid (severe) obesity due to excess calories; Z68.32 Body mass index [BMI] 32.0-32.9, adult; E78.5 Hyperlipidemia, unspecified; I12.9 Hypertensive chronic kidney disease with stage 1 through stage 4 chronic kidney disease, or unspecified chronic kidney disease; I25.10 Atherosclerotic heart disease of native coronary artery without angina pectoris; I25.2 Old myocardial infarction; J44.9 Chronic obstructive pulmonary disease, unspecified; K21.9 Gastro-esophageal reflux disease without esophagitis; N18.3 Chronic kidney disease, stage 3 (moderate); Z79.4 Long term (current) use of insulin; Z79.82 Long term (current) use of aspirin; Z82.49 Family history of ischemic heart disease and other diseases of the circulatory system; Z95.1 Presence of aortocoronary bypass graft; J81.1 Chronic pulmonary edema
CPT/HCPCS: 94660; 93005; 97162; 83880; 80053; 80048; 84484; 85027; 88302; 71045; 71046; 49657; C1781; J2250; J0360; J1644; J1100; J2710; J2405; J2001; J1650; J3010; J1170; J0330; J2704; J0690

== ENCOUNTER → 2023-04-30 | Outpatient (CLI) | payer MEDICARE ==
--- NOTE | 2023-05-01 09:58 | MR ---
EXAMINATION TYPE: MR knee LT wo con DATE OF EXAM: 04/30/2023 COMPARISON: None HISTORY: 77-year-old male M25.562, Lt knee pain TECHNIQUE: Multiplanar, multisequence imaging of the left knee is performed without IV contrast. FINDINGS: ACL and PCL are intact. MCL is intact. There is mild popliteus muscle edema. Additional edema in the region of the plantaris muscle. There i s increased signal involving some of the lateral capsule of the knee joint including the insertion of the conjoined tendon. There is significant heterogeneity also of the femoral attachment of the LCL p yenny. There is oblique tear posterior horn and body of the medial meniscus. No focal chondral defect in the medial compartment. Oblique tear involving the posterior horn and body of the lateral meniscus. Mild diffuse thinning of lateral compartment articular cartilage volume with additional superficial cartilage irregularity. Deep fissuring within mid central patellar articular cartilage but with overall mild diffuse thinning of cartilage volume. Extensor mechanism is intact. Anterior soft tissue swelling. There is a moderate joint effusion with mild chronic synovitis. No Shearer's cyst. Normal popliteal artery anatomy in muscle bulk. No suspicious bone marrow replacement. IMPRESSION: 1. Suspect grade 2 sprain at the femoral attachment of the LCL proper. Grade 1 sprain at the fibular attachment of the conjoined tendon. 2. Additional mild muscle strains of the popliteus and adjacent plantaris muscles. 3. Oblique tear involving the posterior horn and body of both the medial and lateral menisci. 4. Mild degenerative thinning of lateral compartment articular cartilage. 5. Within the patellofemoral compartment, there is focal deep fissuring of mid central patellar carti sugey along with mild diffuse thinning of cartilage volume. 6. Anterior soft tissue swelling. Moderate joint effusion with mild chronic synovitis.
== END | disposition home or self-care (01) ==
LOC: RADMRIMAIN 11:10
PROVIDERS: ATTEND Orthopaedic Surgery
DX: S83.242A Other tear of medial meniscus, current injury, left knee, initial encounter (principal); S83.282A Other tear of lateral meniscus, current injury, left knee, initial encounter; M17.12 Unilateral primary osteoarthritis, left knee; M79.89 Other specified soft tissue disorders; M87.08 Idiopathic aseptic necrosis of bone, other site; M65.88 Other synovitis and tenosynovitis, other site; M25.462 Effusion, left knee; M23.8X2 Other internal derangements of left knee; X58.XXXA Exposure to other specified factors, initial encounter

== ENCOUNTER → 2023-07-29 | Outpatient (CLI) | payer MEDICARE ==
--- NOTE | 2023-07-31 06:15 | MR ---
EXAMINATION TYPE: MR knee RT wo con DATE OF EXAM: 07/29/2023 COMPARISON: NONE HISTORY: Right knee pain and swelling, internal derangement of right knee. History of prior surgery. Unilateral primary osteoarthritis. Sprain of lateral collateral ligament. TECHNIQUE: Multiplanar, multisequence images of the knee is performed without IV contrast. FINDINGS: MEDIAL MENISCUS: Medial extrusion medial meniscus on coronal images Oblique signal posterior horn ext ends to inferior articular surface sagittal image 9. LATERAL MENISCUS: Lateral extrusion lateral meniscus on the coronal images. Horizontal increased sign al central body and posterior horn extends to the inferior articular surface sagittal image 27. CRUCIATE LIGAMENTS: The anterior and posterior cruciate ligaments are intact and unremarkable. COLLATERAL LIGAMENTS: The medial collateral ligament and lateral collateral ligament complex are inta ct and unremarkable. EXTENSOR MECHANISM: Visualized quadriceps and patellar tendons are intact. EFFUSION: No significant suprapatellar joint effusion. POPLITEAL CYST: Small leaking popliteal/van cyst. TRICOMPARTMENT SPACES: Moderate narrowing patellofemoral compartment. Mild tricompartment spurring. CARTILAGE: Chondromalacia patella with cartilaginous loss along the posterior patellar pole. Some car tilaginous loss lateral tibiofemoral compartment BONE MARROW SIGNAL: No focal abnormal marrow signal is appreciated. OTHER: No additional significant abnormality is appreciated. IMPRESSION: 1. Full-thickness tear lateral meniscus involving the posterior horn and central body. 2. Oblique full-thickness tear posterior horn medial meniscus. 3. Tricompartment degenerative changes most prominent patellofemoral compartment. 4. Small leaking popliteal cyst.
== END | disposition home or self-care (01) ==
LOC: RADMRIMAIN 16:03
PROVIDERS: ATTEND Orthopaedic Surgery
DX: M23.251 Derangement of posterior horn of lateral meniscus due to old tear or injury, right knee (principal); M17.11 Unilateral primary osteoarthritis, right knee; M71.21 Synovial cyst of popliteal space [Baker], right knee

== ENCOUNTER 2024-05-30 16:22 | Emergency (ER) | payer MEDICARE ==
[2024-05-30] MEDS ORDERED: METOPROLOL TARTRATE 50 MG TAB ONE (18:51)
[2024-05-30] MEDS ORDERED: LOSARTAN 50 MG TAB ONE (19:16)
== END 2024-05-30 20:45 | disposition home or self-care (01) ==
LOC: EC 16:22
DX: R51.9 Headache, unspecified (principal)
CPT/HCPCS: 93005; 99283

== ENCOUNTER → 2024-06-17 | Outpatient (CLI) | payer MEDICARE ==
[2024-06-17 15:47] LABS: Blood Urea Nitrogen 18.3 mg/dL (9.0-27.0); Carbon Dioxide 25.1 mmol/L (21.6-31.8); Chloride 102 mmol/L (96-109); Potassium 4.7 mmol/L (3.5-5.5); Sodium 141 mmol/L (135-145)
[2024-06-17 16:25] LABS: HCT 42.3 % (39.6-50.0); HGB 13.6 g/dL (13.0-17.0); MCH 29.8 pg (27.0-32.0); MCHC 32.2 g/dL (32.0-37.0); MCV 92.8 FL (80.0-97.0); Mean Platelet Volume 10.3 FL (9.5-12.2); NRBC Per 100 WBC 0 X 10*3/uL (0.00-0.01); Platelet Count 190 X 10*3/uL (140-440); RBC 4.56 X 10*6/uL (4.40-5.60); RDW 14.9 % (11.5-14.5); WBC 7.65 X 10*3/uL (4.50-10.00)
== END | disposition home or self-care (01) ==
LOC: LABPAT 09:14
PROVIDERS: ATTEND Internal Medicine Interventional Cardiology
DX: Z01.812 Encounter for preprocedural laboratory examination (principal); I70.213 Atherosclerosis of native arteries of extremities with intermittent claudication, bilateral legs
CPT/HCPCS: 80051; 82565; 84520; 85027

== ENCOUNTER 2024-06-22 09:31 | Day surgery (SDC) | payer MEDICARE ==
[~2024-06-22 09:31] MED LIST changes: +ASPIRIN 325 MG TAB PO PRN; -DEXAMETHASONE SOD PHOSPHATE 10 MG/ML 1 ML VIAL IV ONE; -HEPARIN SODIUM,PORCINE 5,000 UNIT/ML 1 ML VIAL SQ ONE; -HYDROmorphone 0.5 MG/0.5 ML SYRINGE IVP PRN; -LIDOCAINE 1% 20 ML VIAL (10MG/ML) FOR IV START INTRADERMA PRN; -ONDANSETRON 4 MG/2 ML VIAL IVP ONE; -SCOPOLAMINE 1.5MG/72HR PATCH TRANSDERM ONE; -ceFAZolin IN SWFI 2 GM/20 ML SYRINGE IVP ONE
[2024-06-22] MEDS ORDERED: EMPTY BAG 1 BAG with SODIUM CHLORIDE 0.9% 1,000 ML IV ONE (10:45)
[2024-06-22 10:50] VITALS: RESP 16; TEMP 97.2
[2024-06-22] MEDS: EMPTY BAG 1 BAG with SODIUM CHLORIDE 0.9% 1,000 ML IV SCH (10:51)
[2024-06-22] MEDS: ALPRAZolam 0.5 MG TAB ONE (10:54)
[2024-06-22] MEDS: IV FLUID CONTINUATION 1,000 ML IV ONE (10:56)
[2024-06-22 11:05] LABS: Glucose,Whole Blood 120 mg/dL (70-110)
[2024-06-22] MEDS: ACETAMINOPHEN TAB 500 MG TAB PO STA (11:14)
[2024-06-22] MEDS ORDERED: LIDOCAINE 1% INJ 10MG/ML (20 ML MDV) ONE (12:58)
[2024-06-22] MEDS ORDERED: VERAPAMIL 2.5 MG/ML 2 ML AMP ONE (13:01)
[2024-06-22] MEDS: MIDAZOLAM 2 MG/2 ML VIAL IVP ONE (13:07)
[2024-06-22] MEDS: LIDOCAINE 1% INJ 10MG/ML (20 ML MDV) SQ ONE (13:08)
[2024-06-22] MEDS ORDERED: HEPARIN SODIUM 1,000 UN/ML (10ML VL) ONE (13:13)
[2024-06-22] MEDS: HEPARIN SODIUM 1,000 UN/ML (10ML VL) IVP ONE (13:18)
[2024-06-22] MEDS ORDERED: NALOXONE 0.4 MG/ML 1 ML VIAL IVP PRN (13:23)
[2024-06-22] MEDS: IOPAMIDOL-250 100ML BTL INTRAARTER ONE (13:25)
--- NOTE | 2024-06-22 13:28 | P.PCN ---
Date of Procedure: 06/22/24 Operative Findings: AN ABDOMINAL AORTOGRAM AND BILATERAL LOWER EXTREMITIES RUNOFF PERFORMING PHYSICIAN: Aidan Antoine MD PROCEDURE PERFORMED: 1. An abdominal aortogram and bilateral lower extremity angiogram 2. Ultrasound-guided access of the right radial artery INDICATION: Symptomatic 78-year-old gentleman with abnormal [place] COMPLICATION: None LEVEL OF SEDATION: Moderate was sedation length of moderate with sedation length of 13 minutes APPROACH: Right common femoral artery PROCEDURE DESCRIPTION: After obtaining informed consent the patient was brought to the cardiac Doctor Of [facility]rap[facility]. The right radial artery was cannulated using micropuncture technique under ultrasound guidance a micropuncture wire passed easily and subsequently placed a 6 [place] 11 cm sheath at the right radial artery. I gave the patient 2 mg of verapamil intra-arterial and 4000's of heparin intravenous. An aortogram and bilateral lower extremities angiogram was performed using 5 Turk[place] pigtail catheter. The procedure was completed with no complication. SELECTIVE PERIPHERAL ANGIOGRAM: The abdominal aorta: Calcified with mild disease only The common iliac arteries: Extremely calcified with no high-grade stenosis was identified The external iliac arteries: Are calcified with mild disease on The internal iliac arteries: Are patent The common femoral arteries: Calcified with mild disease only with no high-grade stenosis was identified Superficial femoral arteries: Calcified with mild to moderate disease with no high-grade stenosis was identified. The disease up to about 50% Popliteal arteries: Calcified with mild to moderate diffuse disease with no high-grade stenosis was identified Below the knees: The arteries below the knee are poorly visualized CONCLUSION: Extremely calcified peripheral arterial system of the lower extremities POSTPROCEDURE MANAGEMENT: Consider medical treatment at this point
[2024-06-22] MEDS ORDERED: SODIUM CHLORIDE 0.9% 1,000 ML in EMPTY BAG 1 BAG IV SCH (13:30)
[2024-06-22] MEDS ORDERED: ACETAMINOPHEN TAB 325 MG TAB PO STA (14:21)
[2024-06-22] MEDS: ALPRAZolam 0.25 MG TAB PO PRN (14:21)
[2024-06-22 16:38] VITALS: BP 142/78; PULSE 68
--- NOTE | 2024-07-23 14:30 | IR ---
EXAMINATION TYPE: IR angio abdominal w runoff DATE OF EXAM: 06/22/2024 1:47 PM COMPARISON: Pre Operative Images if available both CT/MRI or plain film CLINICAL INDICATION: Male, 78 years old with history of right toe ulcers, 2.8min fluoro, 18.2Gycm2; TECHNIQUE: IR angio abdominal w runoff, multiple fluoroscopic images provided for procedure. Total fluoroscopy time: 18.2 seconds Total submitted images to PACS: 63 DAP: 2.8 mGym2 Gycm2 uGym2 cGycm2 or equivalent. IMPRESSION: 1. Report was generated for administrative purposes only. 2. Please see the operative/procedural note for further details. [facility], , 07/23/2024 2:27 PM
== END 2024-06-22 16:49 | disposition home or self-care (01) ==
LOC: CATHCVL 09:31
PROVIDERS: ATTEND Internal Medicine Interventional Cardiology
DX: I70.213 Atherosclerosis of native arteries of extremities with intermittent claudication, bilateral legs (principal)
CPT/HCPCS: 36200; 75625; 75716

== ENCOUNTER → 2024-07-08 | Outpatient (CLI) | payer MEDICARE ==
[2024-07-08 12:04] LABS: Partial Thromboplastin Time 23.5 sec (22.0-30.0); Prothrombin Time 11.3 sec (10.0-12.5)
[2024-07-08 15:02] LABS: Basophils # (A) 0.07 X 10*3/uL (0.00-0.10); Basophils % (A) 0.8 %; Eosinophils # (A) 0.52 X 10*3/uL (0.04-0.35); Eosinophils % (A) 5.8 %; HCT 44.2 % (39.6-50.0); HGB 14.6 g/dL (13.0-17.0); Lymphocytes # (A) 1.29 X 10*3/uL (0.90-5.00); Lymphocytes % (A) 14.3 %; MCV 87.9 FL (80.0-97.0); Mean Platelet Volume 9.4 FL (9.5-12.2); Monocytes # (A) 0.81 X 10*3/uL (0.20-1.00); NRBC Per 100 WBC 0 X 10*3/uL (0.00-0.01); Neutrophils # (A) 6.25 X 10*3/uL (1.80-7.70); Platelet Count 237 X 10*3/uL (140-440); RBC 5.03 X 10*6/uL (4.40-5.60); RDW 14.4 % (11.5-14.5); WBC 9.04 X 10*3/uL (4.50-10.00)
[2024-07-08 21:03] LABS: BUN/Creat Ratio 12.07 Ratio (12.00-20.00); Blood Urea Nitrogen 18.1 mg/dL (9.0-27.0); Calcium 9.3 mg/dL (8.7-10.3); Carbon Dioxide 23.9 mmol/L (21.6-31.8); Chloride 104 mmol/L (96-109); Chol/HDL Ratio 5.11 Ratio; Glucose 179 mg/dL (70-110); LDL Cholesterol,Calculated 83.3 mg/dL (0.0-131.0); Potassium 4.3 mmol/L (3.5-5.5); Sodium 140 mmol/L (135-145)
== END | disposition home or self-care (01) ==
LOC: LABWHC1 11:07
PROVIDERS: ATTEND Physician Assistant Medical
DX: I25.10 Atherosclerotic heart disease of native coronary artery without angina pectoris (principal); E11.9 Type 2 diabetes mellitus without complications
CPT/HCPCS: 36415; 80048; 80061; 83036; 85025; 85610; 85730